=== PATIENT | female | born 1950 | race African-American/Black ===

== ENCOUNTER 2019-12-10 10:15 | Inpatient (IN) | payer MEDICARE, OTHER ==
[~2019-12-10] VITALS: Ht 165.1 cm; Wt 137.4 kg
[2019-12-10] MEDS ORDERED: ONDANSETRON HCL INJ 2MG/ML 2ML 2 MG/ML VIAL IV PRN (12:30)
[2019-12-10] MEDS ORDERED: ASPIRIN 81 MG CHEW TAB PO ONE (12:30)
[2019-12-10] MEDS ORDERED: SODIUM CHLORIDE FLUSH 10 ML SYR INJ PRN (12:30)
[2019-12-10 12:35] LABS: BASOPHILS % 0.4 % (0.0-1.0); EOSINOPHILS # (AUTO) 0.2 (0.0-0.4); EOSINOPHILS % 2.3 % (0.0-6.0); HEMOGLOBIN 14.4 g/dL (12.0-16.0); LYMPHOCYTES # (AUTO) 2.3 (1.0-3.2); MEAN CORPUSCULAR HEMOGLOBIN 27.9 pg (28-32); MEAN CORPUSCULAR HGB CONC 32.7 g/dL (31-35); MEAN CORPUSCULAR VOLUME 85.3 fL (81-99); MONOCYTES # (AUTO) 0.4 (0.2-0.8); MONOCYTES % 4.9 % (4.4-11.3); NEUTROPHILS # (AUTO) 4.9 (2.1-6.9); PLATELET COUNT 224 x10e3/uL (140-360); RED BLOOD COUNT 5.16 x10e6/uL (3.6-5.1); RED CELL DISTRIBUTION WIDTH 14.6 % (11.7-14.4)
--- NOTE | 2019-12-10 12:39 | NUR ---
[facility] called to transport pt to room 205
--- NOTE | 2019-12-10 12:44 | NUR ---
Report to [facility] Guillermo
[2019-12-10] MEDS ORDERED: SYMBICORT 16010.2 GM (12:50)
[2019-12-10] MEDS ORDERED: FAMOTIDINE20 MG PO (12:50)
[2019-12-10] MEDS ORDERED: ZYRTEC10 M3 (12:50)
[2019-12-10] MEDS ORDERED: TRIAMTERENE-HCTZ1 EA PO (12:50)
[2019-12-10] MEDS ORDERED: SIMVASTATIN40 MG PO (12:50)
[2019-12-10] MEDS ORDERED: ACETAMINOPHEN325 M1 PO (12:50)
[2019-12-10] MEDS ORDERED: ATROVENT HFA12.9 GM IH (12:50)
[2019-12-10] MEDS ORDERED: ASPIRIN EC81 MG PO (12:50)
[2019-12-10] MEDS ORDERED: PLAVIX75 MG PO (12:50)
[2019-12-10] MEDS ORDERED: METFORMIN HCL500 MG PO (12:50)
--- NOTE | 2019-12-10 13:41 | NUR ---
[facility] here to transport pt to room 205
--- NOTE | 2019-12-10 14:01 | Emergency Department Note ---
History of Present Illnes History of Present Illness Chief Complaint: Headache History of Present Illness This is a 69 year old female with episode of dizziness, numbness/tingling around lips and bilateral UE and vision problems (could not see). Episode occurred . Initial symptom was dizziness, which I can get her best to described as lightheadedness. She states that this was followed by the numbness and tingling. She states that she had to get up to go to the bathroom and her daughter assisted her. She states that at this time she had some problems with her vision. She is choses from another vision has spots in her vision where she cannot see. She denies any weakness during this episode. She denies any slurred speech or problems finding her words. She denies any ear problems. She states this episode happened for about 3 hours. She had an associated mild to moderate headache. She states she is asymptomatic now, and has been asymptomatic since the episode. She presented to the emergency room today at the urging of her daughter for evaluation. She has a history of prior strokes. However, her previous strokes she states she had dysarthria and dysphagia which she denies now. Historian: Patient Arrival Mode: Car Zinc Plate Cutter Required: No Onset (how long ago): hour(s) (3) Radiation: Reports non-radiation Severity: severe Onset quality: sudden Duration (how long): hour(s) (3) Progression: resolved Chronicity: new Relieving factors: none Exacerbating factors: none Associated symptoms: Denies confusion, Denies chest pain, Denies cough, Denies diaphoresis, Denies fever/chills, Denies headaches, Denies loss of appetite, Denies malaise, Denies nausea/vomiting, Denies rash, Denies seizure, Denies shortness of breath, Denies syncope, Denies weakness Past Medical/Family History Physician Review I have reviewed the patient's past medical and family history. Any updates have been documented here. Past Medical History Recent Fever: No Clinical Suspicion of Infectio: No New/Unexplained Change in Ment: No Past Medical History: Hypertension, Diabetes, COPD, CHF, A-Fib, ESRD, GERD Past Surgical History: Hysterectomy Social History Smoking Cessation: Never Smoker Counseling Performed: No Alcohol Use: None Any Illegal Drug Use: No Physically hurt or threatened: No Other Any Pre-Existing Lines (PICC,: No Review of Systems Review of Systems Constitutional: Reports no symptoms EENTM: Reports no symptoms Cardiovascular: Reports no symptoms Respiratory: Reports no symptoms Gastrointestinal: Reports no symptoms Genitourinary: Reports no symptoms Musculoskeletal: Reports no symptoms Integumentary: Reports no symptoms Neurological: Reports no symptoms; Denies headache, Denies numbness, Denies paresthesia, Denies tingling, Denies weakness Psychological: Reports no symptoms Endocrine: Reports no symptoms Hematological/Lymphatic: Reports no symptoms Physical Exam Related Data Allergies: Coded Allergies: No Known Allergies (Unverified , 12/10/19) Triage Vital Signs Vital Signs Date Time Temp Pulse Resp B/P (MAP) Pulse Ox O2 Delivery O2 Flow Rate FiO2 12/10/19 10:22 99.1 97 21 120/65 98 Room Air Physical Exam CONSTITUTIONAL Constitutional: Present well-developed, Present well-nourished HENT HENT: Present normocephalic, Present atraumatic, Present oropharynx clear/moist, Present nose normal HENT L/R: Present left ext ear normal, Present right ext ear normal EYES Eyes: Reports conjunctivae normal; Denies left eye discharge, Denies right eye discharge NECK Neck: Present ROM normal, Present supple PULMONARY Pulmonary: Present effort normal, Present breath sounds normal; Absent respiratory distress CARDIOVASCULAR Cardiovascular: Present regular rhythm, Present heart sounds normal, Present capillary refill normal, Present normal rate GASTROINTESTINAL Abdominal: Present soft, Present nontender GENITOURINARY Genitourinary: Present exam deferred SKIN Skin: Present warm, Present dry; Absent rash MUSCULOSKELETAL Musculoskeletal: Present ROM normal; Absent edema, Absent deformity NEUROLOGICAL Neurological: Present alert, Present oriented x 3, Present DTRs normal; Absent no gross motor or sensory deficits, Absent cranial nerve deficit, Absent sensory deficit, Absent abnormal DTRs, Absent abnormal coordination, Absent weakness PSYCHOLOGICAL Psychological: Present mood/affect normal Results Laboratory Result Diagram: 12/10/19 1110 Laboratory Laboratory Tests Test 12/10/19 11:10 White Blood Count 7.75 x10e3/uL (4.8-10.8) Red Blood Count 5.16 x10e6/uL (3.6-5.1) Hemoglobin 14.4 g/dL (12.0-16.0) Hematocrit 44.0 % (34.2-44.1) Mean Corpuscular Volume 85.3 fL (81-99) Mean Corpuscular Hemoglobin 27.9 pg (28-32) Mean Corpuscular Hemoglobin Concent 32.7 g/dL (31-35) Red Cell Distribution Width 14.6 % (11.7-14.4) Platelet Count 224 x10e3/uL (140-360) Neutrophils (%) (Auto) 63.0 % (38.7-80.0) Lymphocytes (%) (Auto) 29.0 % (18.0-39.1) Monocytes (%) (Auto) 4.9 % (4.4-11.3) Eosinophils (%) (Auto) 2.3 % (0.0-6.0) Basophils (%) (Auto) 0.4 % (0.0-1.0) Neutrophils # (Auto) 4.9 (2.1-6.9) Lymphocytes # (Auto) 2.3 (1.0-3.2) Monocytes # (Auto) 0.4 (0.2-0.8) Eosinophils # (Auto) 0.2 (0.0-0.4) Basophils # (Auto) 0.0 (0.0-0.1) Absolute Immature Granulocyte (auto 0.03 x10e3/uL (0-0.1) Assessment & Plan Medical Decision Making MDM TIA, anxiety reaction, BPV, labyrinthitis, vestibular neuritis, afib/arrythmia, hypotension, volume depletion, retinal artery thrombosis, retinal vein thrombosis. Spoke with Dr. Spence who agreed to admit. Assessment & Plan Final Impression: (1) Transient ischemic attack (TIA) Depart Disposition: ADMITTED Last Vital Signs Date Time Temp Pulse Resp B/P (MAP) Pulse Ox O2 Delivery O2 Flow Rate FiO2 12/10/19 13:43 81 16 98 12/10/19 10:22 99.1 120/65 Room Air Home Meds Reported Medications Ipratropium Julian (ATROVENT HFA) 12.9 Gm Hfa.aer.ad, DAILY 12/10/19 Budesonide/Formoterol Fumarate (SYMBICORT 160-4.5 MCG INHALER) 10.2 Gm Hfa.aer.ad, DAILY 12/10/19 Famotidine (FAMOTIDINE) 20 Mg Tab, 20 MG PO DAILY, #30 TAB 12/10/19 Simvastatin (SIMVASTATIN) 40 Mg Tablet, 40 MG PO 2100, #30 TAB 12/10/19 Triamterene/Hctz (TRIAMTERENE-HCTZ 37.5-25 MG TB) 1 Ea Tab, 1 EACH PO DAILY, TAB 12/10/19 Metformin Hcl (METFORMIN HCL) 500 Mg Tablet, 500 MG PO DAILY, #60 TAB 12/10/19 Cetirizine Hcl (ZYRTEC) 10 Mg Capsule, BID THERAPEUTICALLY SUBSTITUTED WITH LORATIDINE 10MG 12/10/19 Clopidogrel Bisulfate* (PLAVIX) 75 Mg Tablet, 75 MG PO DAILY, #30 TAB 12/10/19 Aspirin (ASPIRIN EC) 81 Mg Tablet.dr, 81 MG PO DAILY, #30 TAB 12/10/19 Acetaminophen (ACETAMINOPHEN) 325 Mg Tablet, 500 MG PO Q6H PRN for Mild Pain (1- 3) or Fever>100.8 for 5 Days, TAB 12/10/19 ISABEL BARBA MD Dec 10, 2019 13:55
[2019-12-10 14:22] VITALS: BP 125/53
--- NOTE | 2019-12-10 14:22 | NUR ---
Received patient via stretcher from free standing ER. AAOX3 to time, person, place. Respirations even and unlabored. Denies chest pain. Oriented to room. Instructed to use call light for assistance. Side rails upx2, call light within reach.
--- NOTE | 2019-12-10 14:43 | Diagnostic Imaging Report ---
Exam: Head CT without contrast History: Possible stroke, numbness, tingling Comparison studies: None Technique: Axial images were obtained from the skull base to the vertex. Coronal and sagittal images reconstructed from the axial data. Dose modulation, iterative reconstruction, and/or weight based adjustment of the mA/kV was utilized to reduce the radiation dose to as low as reasonably achievable. Radiation dose: Total DLP: 921.4 mGy*cm. Estimated effective dose: DLP x 0.015 Intravenous contrast: None Findings: Scalp: No abnormalities. Bones: No fractures or destructive lytic or blastic lesions. Incidental benign osteoma along the outer table of the right parietal calvarium. Brain sulci: Appropriate for age. Ventricles: Ex vacuo dilatation of the frontal horn right lateral ventricle due to chronic insult described below. No hydrocephalus. Extra-axial spaces: No masses, no fluid collection. Parenchyma: No mass, acute hemorrhage or acute cortical insults. Chronic cortical/subcortical infarct in the right MCA territory with encephalomalacia in clear cysts along the right middle and inferior frontal gyrus with involvement of the right frontal operculum, right inferior precentral gyrus and right letty-insular region. A chronic lacunar infarct is present in the anterior limb of the right internal capsule superiorly. Ill-defined and confluent hypodensities in the supratentorial white matter are nonspecific but are most compatible with chronic microvascular ischemic changes. Sellar/suprasellar region: No abnormalities. Craniocervical junction: Patent foramen magnum. No Chiari one malformation. Incidental findings: Atherosclerotic calcifications in the carotid siphons.. IMPRESSION: 1. No acute intracranial abnormalities. 2. Chronic right frontal-insular infarct. 3. Moderate chronic microvascular ischemic changes with chronic lacunar infarct in the anterior limb of the right internal capsule. Signed by: Dr. Antonio Phillips M.D. on 12/10/2019 2:39 PM
[2019-12-10 15:00] VITALS: BP 125/53
[2019-12-10] MEDS ORDERED: ACETAMINOPHEN 325 MG TAB PO PRN ×2 (17:30→23:30)
--- NOTE | 2019-12-10 19:20 | NUR ---
Report given to oncoming nurse of patient's status. Resting in bed. No s/s of acute distress noted. Side rails upx2, call light within reach.
[2019-12-10 20:16] VITALS: BP 105/61
[2019-12-10 21:00] VITALS: BP 105/61
[2019-12-10] MEDS ORDERED: IPRATROPIUM BROMIDE INHALER 12.9 GM INH INH PRN (23:15)
[2019-12-11] VITALS (7 sets, daily range): BP systolic 99–127; BP diastolic 58–101
--- NOTE | 2019-12-11 01:05 | History and Physical ---
PRIMARY CARE DOCTOR: Dr. Antonio Easton. CHIEF COMPLAINT: Dizziness. HISTORY OF PRESENT ILLNESS: This is a 69-year-old woman, who has 3 old strokes in the past. However, she denies any atrial fibrillation and she only takes aspirin. Three days ago, she developed dizziness, possibly the best way to describe it is lightheadedness, this lasted for more than 24 hours and finally that went away. This has caused nausea and also both arms and lip numbness. Subsequently, the patient had a headache because of this. Her last stroke was about a year ago. The patient denies taking Plavix or any other blood thinner. Denies chest pain, fever, or cough. The patient also has vision changes, which went away as well. PAST MEDICAL AND SURGICAL HISTORY: 1. Diabetes. 2. Old stroke. 3. Hypertension. 4. Hypercholesterolemia. MEDICATIONS: Please see medication reconciliation form. ALLERGIES: NONE. SOCIAL HISTORY: Does not smoke. FAMILY HISTORY: Positive for diabetes. REVIEW OF SYSTEMS: A 10-point review of systems obtained and nothing else is significant other than what is stated in HPI. PHYSICAL EXAMINATION: VITAL SIGNS: Temperature 99.7, pulse 83, respiratory rate 18, blood pressure 105/61. GENERAL: No acute distress. SKIN: No rash. HEENT: Anicteric. Oropharynx is clear. LUNGS: Clear. HEART: Regular rate and rhythm. Normal S1 and S2. GI: Abdomen is soft, nondistended. NEUROLOGIC: Alert and oriented x3. Cranial nerves II through XII grossly intact. PSYCHIATRIC: No depression. MUSCULOSKELETAL: Painless range of motion. LABORATORY DATA: INR is normal. Potassium is 3.3, creatinine is 1.2. White count 7.6, hemoglobin 14.7, platelet count 427. Head CT did not show any acute disease. ASSESSMENT AND PLAN: 1. Atypical neurological symptoms. However, given multiple old strokes in the past, we will observe overnight and check MRI of the brain to rule out acute stroke. Continue with aspirin. 2. Diabetes, for now sliding scale. 3. Hyperlipidemia. We will continue her statin. 4. Hypokalemia. We will replete in the morning along with magnesium. 5. Gastrointestinal and deep vein thrombosis prophylaxis. Low risk, not indicated. MD TOD Allred/FREDDIE /[id number] cc: [facility]
[2019-12-11 06:11] LABS: BASOPHILS % 0.4 % (0.0-1.0); EOSINOPHILS # (AUTO) 0.2 (0.0-0.4); EOSINOPHILS % 2.4 % (0.0-6.0); HEMATOCRIT 40.7 % (34.2-44.1); HEMOGLOBIN 13.7 g/dL (12.0-16.0); LYMPHOCYTES # (AUTO) 2.9 (1.0-3.2); LYMPHOCYTES % 40.3 % (18.0-39.1); MEAN CORPUSCULAR HEMOGLOBIN 29.5 pg (28-32); MEAN CORPUSCULAR HGB CONC 33.7 g/dL (31-35); MEAN CORPUSCULAR VOLUME 87.7 fL (81-99); MONOCYTES # (AUTO) 0.4 (0.2-0.8); MONOCYTES % 6.1 % (4.4-11.3); NEUTROPHILS # (AUTO) 3.6 (2.1-6.9); NEUTROPHILS % 50.7 % (38.7-80.0); PLATELET COUNT 173 x10e3/uL (140-360); RED BLOOD COUNT 4.64 x10e6/uL (3.6-5.1); RED CELL DISTRIBUTION WIDTH 15.1 % (11.7-14.4)
[2019-12-11 06:31] LABS: ALANINE AMINOTRANSFERASE 9 IU/L (0-55); ALBUMIN 3.2 g/dL (3.5-5.0); ALKALINE PHOSPHATASE 127 IU/L (40-150); ANION GAP 15.2 mmol/L (8-16); BILIRUBIN,DIRECT 0.2 mg/dL (0.0-0.5); BLOOD UREA NITROGEN 13 mg/dL (7-26); BUN/CREATININE RATIO 12 (6-25); CALCIUM 9.4 mg/dL (8.4-10.2); CARBON DIOXIDE 26 mmol/L (22-29); CHLORIDE 102 mmol/L (98-107); CHOL/HDL RATIO 5.2 (3.0-3.6); CHOLESTEROL 160 MD/DL (0-199); CREATININE, SERUM 1.08 mg/dL (0.57-1.11); EST GLOMERULAR FILTRATION RATE > 60 ML/MIN (60-); GLUCOSE 109 mg/dL (74-118); HDL CHOLESTEROL 31 MG/DL (40-60); LDL CHOLESTEROL 111 MG/DL (60-130); POTASSIUM 3.2 mmol/L (3.5-5.1); SODIUM 140 mmol/L (136-145); TRIGLYCERIDES 89 MG/DL (0-149)
--- NOTE | 2019-12-11 07:00 | NUR ---
Patient resting comfortably. No acute distress noted. Shift report given to oncoming nurse for continuity of care.
[2019-12-11] MEDS: INSULIN LISPRO 100 UNIT/1 ML 3ML VIAL SQ SCH ×4 (07:30→20:52)
--- NOTE | 2019-12-11 08:00 | NUR ---
The pt. was received in stable condition and denies pain or numbness and tingling.
[2019-12-11] MEDS ORDERED: ASPIRIN 325 MG TAB EC PO SCH (09:00)
[2019-12-11] MEDS: LORATADINE 10 MG TAB PO SCH (09:13)
[2019-12-11] MEDS: BUDESONIDE/FORMOTEROL 160/4.5MCG INHALER INH SCH (11:45)
[2019-12-11] MEDS ORDERED: POTASSIUM CHLORIDE 20 MEQ TAB CR PO ONE (12:30)
[2019-12-11 13:04] LABS: CREATINE KINASE MB 0.8 ng/mL (0-5.0)
--- NOTE | 2019-12-11 18:47 | NUR ---
The pt.'s Mri has been completed and not resulted at this time.
--- NOTE | 2019-12-11 19:15 | NUR ---
Patient received sitting up in bed. AAO x 3. Patient had no complaints of pain. Respirations even and non-labored. Fall precautions implemented. Patient instructed to call for assistance when needed. Call light within reach.
[2019-12-11] MEDS ORDERED: SIMVASTATIN 40 MG TAB PO SCH (21:00)
--- NOTE | 2019-12-11 21:52 | Diagnostic Imaging Report ---
EXAMINATION: MRI of the brain without contrast. HISTORY: TIA, numbness in face and hands for the last 5 days. Evaluate for acute stroke. COMPARISON: Head CT 03/11/2020 TECHNIQUE: Sagittal T2; axial DWI, T2, FLAIR, T1-IR, T2 gradient echo; coronal FLAIR. FINDINGS: Parenchyma: 1. Small focal areas of increased T2 FLAIR signal intensity and restricted diffusion along the medial margin of the right occipital/temporal horns and posterior occipital subcortical white matter, consistent with acute ischemic infarct, likely along the right FINISH PAINTER distribution inner zone. 2. Cortico-subcortical encephalomalacia in the right middle/inferior frontal gyri, right lateral precentral gyrus, and anterior insula, underlying white matter cavitating encephalomalacia and compensatory dilatation of the right frontal horn, associated Wallerian degeneration. 3. Scattered and moderate to severe confluent periventricular and muniz radiata white matter T2 hyperintense foci, most likely nonspecific chronic microvascular ischemic changes, involving the dorsal salomón as well. Small chronic lacunar infarct in the anterior limb of the internal capsules 4. No mass or acute hemorrhage. Skull: Unremarkable. Vessels: Orbital small vertebral and basilar arteries Extra-axial spaces: No abnormal signal intensity or mass effect. Brain volume: Within normal limits for age. Ventricles: No hydrocephalus or displacement. Foramen magnum: Unremarkable. Sella: Unremarkable. Paranasal / mastoid sinuses: No significant inflammatory disease. IMPRESSION: 1. Acute right occipital periventricular ischemic infarcts without significant mass effect or hemorrhagic component. Consider a CT angiogram of the head and neck was contrast or MR angiogram of the head and neck for further evaluation. 2. Right MCA chronic infarct. 3. Moderate chronic microvascular ischemic changes. Signed by: Dr. Ofelia Perdue M.D. on 12/11/2019 9:48 PM
--- NOTE | 2019-12-11 23:36 | Progress Note ---
DATE: 12/11/2019 SUBJECTIVE: Feels fine. No dizziness. Back to baseline. OBJECTIVE: VITAL SIGNS: Temperature 96.3, pulse 64, respiratory rate 17, blood pressure 123/101. GENERAL: In no acute distress. SKIN: No rash. LUNGS: Clear. HEART: Regular rate and rhythm. Normal S1, S2. GI: Abdomen is soft and nondistended. NEUROLOGIC: Alert and oriented x3. PSYCHIATRIC: No hallucination. LABORATORY DATA: Laboratory becker, hemoglobin 13.7, creatinine 1.08, potassium 3.2. Repeat troponins are negative. ASSESSMENT AND PLAN: 1. Dizziness and other nonspecific neurologic symptoms, still awaiting MRI of the brain to rule out transient ischemic attack. I have discussed with the patient, with her primary care doctor as far as we know, there is no known history of atrial fibrillation. However, the patient was taking Plavix at home for secondary stroke prophylaxis. We will continue that. 2. Hyperlipidemia. We will continue her statin. 3. Hypokalemia. We will replete again. 4. Gastrointestinal and deep venous thrombosis prophylaxis. Low risk, not indicated. 5. Disposition. The patient can be discharged and the MRI is normal. [place] MD TOD Zhao/FREDDIE /[id number]
[2019-12-12 00:11] VITALS: BP 131/74
[2019-12-12 04:50] VITALS: BP 117/69
--- NOTE | 2019-12-12 07:00 | NUR ---
Walking rounds done. Shift report given to oncoming nurse .
--- NOTE | 2019-12-12 07:00 | NUR ---
Bedside rounding has been completed and the pt. has not complaoint at this time. Bed rails are uo times 2. Call light is within reach.
[2019-12-12] MEDS: INSULIN LISPRO 100 UNIT/1 ML 3ML VIAL SQ SCH ×2 (07:30→11:28)
[2019-12-12 07:35] VITALS: BP 105/60
[2019-12-12] MEDS: LORATADINE 10 MG TAB PO SCH (08:11)
[2019-12-12] MEDS: BUDESONIDE/FORMOTEROL 160/4.5MCG INHALER INH SCH (08:35)
[2019-12-12] MEDS ORDERED: CLOPIDOGREL BISULFATE 75 MG TAB PO SCH (09:00)
--- NOTE | 2019-12-12 09:52 | NUR ---
I spoke with DR. Spence after checking with the pt's granddaughter about home medications and living situation. The plan is for echo and carotid doppler today and possible return home today.
[2019-12-12] MEDS ORDERED: ONDANSETRON HCL 4 MG ORAL DISINTEGRATING TAB PO PRN (15:00)
--- NOTE | 2019-12-12 15:20 | NUR ---
The pt. was escorted via w/c to private car for transport home. She was placed into the care of the granddaughter and is in stable condition.
--- NOTE | 2019-12-13 09:58 | Discharge Summary ---
PRIMARY CARE DOCTOR: Dr. Minnie Cameron. FINAL DIAGNOSIS: Acute ischemic infarct. SECONDARY DIAGNOSES: 1. Old stroke x3. 2. Diabetes. 3. Hypertension. 4. Hypercholesterolemia. CONSULTANTS: None. PROCEDURES/STUDIES PERFORMED: Head CT was okay. Carotid was okay. Echocardiogram was unremarkable. MRI of the brain shows acute ischemic infarct of the right occipital/temporal horns and posterior occipital subcortical white matter. HISTORY: Per dictated H and P. HOSPITAL COURSE: The patient was admitted. Her telemetry shows sinus rhythm. I spoke to her primary care doctor over the phone since the patient was not completely clear about her history and her medication, and it is confirmed that there is no history of atrial fibrillation. She is supposed to be taking Plavix at home. We when asked the granddaughter to go to the patient's house and she found both aspirin and Plavix bottles, and there are still many pills in there. So potentially, there is a compliance issue. I have stressed the importance of being compliant to the patient today. Since at this time it was just a small stroke, potentially if she is not compliant, could be a large stroke in the future. The patient was seen and examined today. I have printed out the MRI report, so she can give it to her primary care doctor when she follows up with her in one week. The patient was seen and examined today. CONDITION ON DISCHARGE: Improved. DISCHARGE MEDICATIONS: Please see medication reconciliation form. Yiching MD TOD Zhao/FREDDIE /[id number] cc: [facility]
== END 2019-12-12 15:20 | disposition home or self-care (01) | DRG 64 ==
LOC: FSED 11:05 → ERHOLD 12:18 → MED/SURG2 14:26 → OBSVTOIN 12-12 08:31
PROVIDERS: ADMIT Internal Medicine; ATTEND Internal Medicine
DX: I63.59 Cerebral infarction due to unspecified occlusion or stenosis of other cerebral artery (principal); N18.6 End stage renal disease; I13.2 Hypertensive heart and chronic kidney disease with heart failure and with stage 5 chronic kidney disease, or end stage renal disease; E11.22 Type 2 diabetes mellitus with diabetic chronic kidney disease; E87.6 Hypokalemia; E78.5 Hyperlipidemia, unspecified; J44.9 Chronic obstructive pulmonary disease, unspecified; I48.91 Unspecified atrial fibrillation; K21.9 Gastro-esophageal reflux disease without esophagitis; Z79.82 Long term (current) use of aspirin; Z86.73 Personal history of transient ischemic attack (TIA), and cerebral infarction without residual deficits; I50.9 Heart failure, unspecified; Z83.3 Family history of diabetes mellitus; Z79.84 Long term (current) use of oral hypoglycemic drugs; Z11.59 Encounter for screening for other viral diseases
CPT/HCPCS: 36415; 70450; 70551; 80048; 80053; 80061; 80076; 82550; 82553; 82948; 83036; 84484; 85025; 93005; 93306; 93880; 94664; 99284; G0378; U0002